=== PATIENT | female | born 1930 | race Caucasian/White ===

== ENCOUNTER 2017-05-24 11:31 | Emergency (ER) | payer MEDICAID, OTHER ==
[~2017-05-24] VITALS: Wt 63.0 kg
[2017-05-24] MEDS ORDERED: SODIUM CHLORIDE 0.9% 1L BAG IV* STA (11:48)
--- NOTE | 2017-05-24 12:29 | RADRPT ---
PROCEDURE: XR Chest. CLINICAL INDICATION: Fever, cough TECHNIQUE: Single frontal view of the chest was obtained COMPARISON: None FINDINGS: Atherosclerotic changes are seen in the aortic arch. The heart is mildly enlarged. There is patchy bibasilar atelectasis. The lungs are otherwise clear. There is no pleural effusion or pneumothorax. The bones and soft tissue show no acute change. IMPRESSION: 1. Mild cardiomegaly. 2. Patchy bibasilar atelectasis. RPTAT:AAJJ Daniel Soria Physician Date Time Electronically viewed and signed by Daniel Soria Physician on 05/24/2017 12:29 ELENA/
[2017-05-24 12:43] LABS: BASOPHIL # 0.1 10^3/ul (0.0-0.1); BASOPHILS % 0.7 % (0.0-2.0); EOSINOPHILS # 0.1 10^3/ul (0.0-0.5); EOSINOPHILS % 0.7 % (0.0-7.0); HEMATOCRIT 42.5 % (37.0-47.0); HEMOGLOBIN 13.8 g/dl (12.0-16.0); LYMPHOCYTES # 1.9 10^3/ul (0.8-2.9); LYMPHOCYTES % 24.1 % (15.0-51.0); MEAN CORPUSCULAR HEMOGLOBIN 30.3 pg (29.0-33.0); MEAN CORPUSCULAR HGB CONC 32.5 g/dl (32.0-37.0); MEAN CORPUSCULAR VOLUME 93.4 fl (82.0-101.0); MEAN PLATELET VOLUME 9.9 fl (7.4-10.4); MONOCYTE # 0.5 10^3/ul (0.3-0.9); MONOCYTES % 5.9 % (0.0-11.0); NEUTROPHIL # 5.3 10^3/ul (1.6-7.5); NEUTROPHILS % 68.2 % (39.0-77.0); PLATELET COUNT 307 10^3/UL (140-415); RED BLOOD COUNT 4.55 10^6/ul (4.20-5.40); RED CELL DISTRIBUTION WIDTH 12.7 % (11.5-14.5); WHITE BLOOD COUNT 7.7 10^3/ul (4.8-10.8)
[2017-05-24] MEDS ORDERED: METHYLPREDNISOLONE 125 MG INJ IV STA (12:55)
[2017-05-24] MEDS ORDERED: IPRATROPIUM (NEB) 0.5 MG/2.5 ML AMP NEB STA (12:55)
[2017-05-24] MEDS ORDERED: ALBUTEROL 0.083% (NEB) 2.5 MG/3 ML AMP NEB STA (12:55)
[2017-05-24 12:58] LABS: INR 0.89; PT RATIO 0.9
[2017-05-24 13:02] LABS: ALBUMIN 4.2 g/dl (3.3-4.9); ALBUMIN/GLOBULIN RATIO 1.16; BILIRUBIN,INDIRECT 0.5 mg/dl (0-1.1); BILIRUBIN,TOTAL 0.5 mg/dl (0.2-1.3); CALCIUM 10.2 mg/dl (8.4-10.2); CREATININE 0.72 mg/dl (0.44-1.00); POTASSIUM 4.5 mmol/L (3.5-5.1); TOTAL PROTEIN 7.8 g/dl (6.1-8.1)
[2017-05-24] MEDS ORDERED: BENZ100C70 PO (13:48)
[2017-05-24] MEDS ORDERED: PRED50TA PO (13:48)
--- NOTE | 2017-05-24 14:19 | ERD ---
ER Documentation Chief Complaint Date/Time DATE: 05/24/17 TIME: 14:15 Chief Complaint COUGH, CHILLS, ONSET 3 WEEKS, PT ON LEVAQUIN HPI This is a very pleasant 87-year-old German-speaking female that presents to the emergency department complaining of 3 weeks of a productive cough with productive sputum, chills and generalized myalgias. The patient was seen in the clinic and placed on the Levaquin January 21, 2016, 2 days prior to arrival. She has had no hemoptysis hematemesis or melanotic stools. She has not complained of any diarrhea or constipation. Her son brought her into the emergency department as he stated she had a decreased oral intake for the past 24 hours and he was concerned about dehydration. He also states that the cough has persisted. She denies any night sweats or weight loss. She has no chest pain or pressure that radiates to the neck arm back or jaw. ROS All systems reviewed and are negative except as per history of present illness. Medications Home Meds Active Scripts Benzonatate* (Tessalon Perle*) 100 Mg Capsule, 100 MG PO TID, #20 CAP Prov:CHARLOTTE SORIA 05/24/17 Prednisone* (Prednisone*) 50 Mg Tablet, 50 MG PO DAILY for 5 Days, TAB Prov:CHARLOTTE SORIA 05/24/17 Allergies Allergies: Coded Allergies: Penicillins (Verified Allergy, Unknown, 05/24/17) PMhx/Soc History of Surgery: Yes (cathlab) Anesthesia Reaction: No Hx Neurological Disorder: No Hx Respiratory Disorders: No Hx Cardiac Disorders: Yes (nm 2012) Hx Psychiatric Problems: No Hx Miscellaneous Medical Probl: No Hx Alcohol Use: No Hx Substance Use: No Hx Tobacco Use: No Smoking Status: Never smoker Physical Exam Vitals Vital Signs Date Time Temp Pulse Resp B/P Pulse Ox O2 Delivery O2 Flow Rate FiO2 05/24/17 13:14 70 17 96 21 05/24/17 11:34 98.2 105 26 163/78 93 Physical Exam Constitutional:Well-developed. Well-nourished. HEENT:Normocephalic. Atraumatic.Pupils were equal round reactive to light. Very dry mucous membranes.No tonsillar exudates. Neck: No nuchal rigidity. No lymphadenopathy. No posterior cervical spine tenderness or step-offs. Respiratory: Not using accessory muscles of respiration.Lungs were clear to auscultation bilaterally. No rhonchi. No rales. Wheezing on end auscultation bilaterally. Cardiovascular: Regular rate regular rhythm.No murmurs. No rubs were appreciated.S1, S2 normal. Distal pulses are palpable 2+ bilaterally. GI: Abdomen was soft. Nontender. Non Distended. No pulsatile abdominal masses or bruits. No rebound. No guarding. Bowel sounds were present and normal. Muscle skeletal: Full range of motion of both the upper and lower extremities bilaterally.Normal muscle tone.No assymetrical calf tenderness or swelling. Skin: No petechia, no purpura. No lesions on the palms or the soles of the feet. No maculopapular rash. NEURO: Patient was alert, awake, orientated x3.No facial droop. Gait observed and normal with no ataxia.Speech had regular rate and rhythm. No focal neurological deficits. Result Diagram: 05/24/17 1230 05/24/17 1230 Results 24 hrs Laboratory Tests Test 05/24/17 12:30 White Blood Count 7.710^3/ul Red Blood Count 4.5510^6/ul Hemoglobin 13.8g/dl Hematocrit 42.5% Mean Corpuscular Volume 93.4fl Mean Corpuscular Hemoglobin 30.3pg Mean Corpuscular Hemoglobin Concent 32.5g/dl Red Cell Distribution Width 12.7% Platelet Count 73220^3/UL Mean Platelet Volume 9.9fl Neutrophils % 68.2% Lymphocytes % 24.1% Monocytes % 5.9% Eosinophils % 0.7% Basophils % 0.7% Nucleated Red Blood Cells % 0.0/100WBC Neutrophils # 5.310^3/ul Lymphocytes # 1.910^3/ul Monocytes # 0.510^3/ul Eosinophils # 0.110^3/ul Basophils # 0.110^3/ul Nucleated Red Blood Cells # 0.010^3/ul Prothrombin Time 12.0Sec Prothrombin Time Ratio 0.9 INR International Normalized Ratio 0.89 Activated Partial Thromboplast Time 23.0Sec Sodium Level 147mmol/L Potassium Level 4.5mmol/L Chloride Level 106mmol/L Carbon Dioxide Level 26mmol/L Anion Gap 20 Blood Urea Nitrogen 13mg/dl Creatinine 0.72mg/dl Glucose Level 105mg/dl Lactic Acid Level 2.4mmol/L Calcium Level 10.2mg/dl Total Bilirubin 0.5mg/dl Direct Bilirubin 0.00mg/dl Indirect Bilirubin 0.5mg/dl Aspartate Amino Transf (AST/SGOT) 25IU/L Alanine Aminotransferase (ALT/SGPT) 26IU/L Alkaline Phosphatase 87IU/L Total Protein 7.8g/dl Albumin 4.2g/dl Globulin 3.60g/dl Albumin/Globulin Ratio 1.16 Amylase Level 50U/L Lipase 77U/L Current Medications Medications (Trade) Dose Ordered Sig/Marie Route PRN Reason Start Time Stop Time Status Last Admin Dose Admin Sodium Chloride (NS) 1,950 ml BOLUS OVER 2 HOURS STAT IV* 05/24/17 11:48 05/24/17 11:49 DC 05/24/17 12:35 Albuterol (Proventil 0.083% (Neb)) 5 mg ONCE STAT NEB 05/24/17 12:55 05/24/17 13:07 DC 05/24/17 13:13 Ipratropium [place]aine (Atrovent 0.02% (Neb)) 0.5 mg ONCE STAT NEB 05/24/17 12:55 05/24/17 13:07 DC 05/24/17 13:13 Methylprednisolone Sodium Succinate (Solu-Medrol) 125 mg ONCE STAT IV 05/24/17 12:55 05/24/17 13:07 DC Procedures/MDM The patient presented to the emergency department with productive cough. My differential diagnosis included but was not limited to upper airway obstruction , CHF, pulmonary embolism, cardiac ischemia, pneumonia, pneumothorax, anemia, drug overdose, pulmonary edema, COPD or asthma. The patient was placed in a hospital monitor continuous pulse oximetry and IV access was established by nursing staff. The patient did not appear in severe respiratory distress but given that she did have wheezing on end auscultation I felt it was necessary to administer nebulizer treatments of albuterol and Atrovent. She also was given 125 mg of Solu-Medrol. Wheezing completely resolved. A 1 view chest radiograph for and reviewed by myself showed no infiltrates pneumothorax or pleural effusions 12 Lead EKG tracing ordered and reviewed by myself showed: Normal sinus rhythm of 91 bpm and no arrhythmia. VT interval normal. QRS duration normal. No ST segment elevation No ST segment depression. No changes consistent with acute ischemia. The patient had no leukocytosis or electrolyte abnormalities. The patient's serum lactate was elevated at 2.4. However I did not feel this was result of SIRS or sepsis but rather clinical dehydration. The patient received a total of 2 L boluses of normal saline. Afterwards the patient stated she felt comfortable being discharged home and was given antitussives which included Tessalon Perles and low-dose steroids to continue with her Levaquin for treatment of acute bronchitis. The patient was discharged home in fair condition. They were instructed to return to the emergency department at any time if there was any worsening of their condition. The patient stated they would follow up with their PCP in the next 24-48 hours to initiate a suitable medication regimen under the care of their PCP as well as to allow their PCP to monitor any drug reactions. The patient was discharged home with prescriptions after they gave informed consent to the new medication. They were also fully informed by myself on the adverse effects and adverse drug interactions in order to provide adequate safeguards to prevent possible adverse reactions to medications. Departure Diagnosis: Primary Impression: Acute bronchitis Bronchitis organism: unspecified organism Qualified Code: J20.9 - Acute bronchitis, unspecified organism Additional Impression: Lactic acidosis Condition: Fair Patient Instructions: Bronchitis With Wheezing (Adult), Dehydration (6Y-Adult) CHARLOTTE SORIA May 24, 2017 14:19
[2017-05-24 16:04] VITALS: BP 140/69; PULSE 93; RESP 17; TEMP 97.9
== END 2017-05-24 16:06 | disposition home or self-care (01) ==
LOC: E/R 11:31
DX: J20.9 Acute bronchitis, unspecified (principal); E87.2 Acidosis; R06.02 Shortness of breath
CPT/HCPCS: 71010; 80053; 82150; 83605; 83690; 85025; 85610; 85730; 87040; 87086; 93005; 94664; 96374; J2930; J7030; Z7502; Z7610